=== PATIENT | female | born 1965 | race African-American/Black ===

== ENCOUNTER 2019-10-30 12:24 | Emergency (ER) | payer OTHER, SELFPAY ==
--- NOTE | 2019-10-30 12:40 | ED.URI ---
HPI - URI/Sore Throat General Chief Complaint: Upper Respiratory Infection Stated Complaint: chills/cough/neck sore/pos uti Time Seen by Provider: 10/30/19 12:50 Source: patient and RN notes reviewed Mode of arrival: ambulatory Limitations: no limitations History of Present Illness HPI Narrative: 53-year-old female presents with concern for productive cough, headache, body aches, nasal congestion that started . Reports she has been taking [id number] multisymptom cold medication with no relief. MD elicited complaint: cough Related Data Home Medications Medication Instructions Recorded Confirmed warfarin [Jantoven] 8 mg DAILY 10/30/19 10/30/19 Allergies Allergy/AdvReac Type Severity Reaction Status Date / Time No Known Allergies Allergy Verified 10/30/19 12:39 Review of Systems Review of Systems: Narrative: CONSTITUTIONAL: Reports malaise, chills, sweats, fever. EYES: Denies visual changes, redness, or discharge. ENT: Reports rhinorrhea, congestion, sinus pain, and sore throat. CARDIOVASCULAR: Denies chest pain, palpitations, or edema. RESPIRATORY: Reports productive cough. Denies dyspnea. GASTROINTESTINAL: Denies abdominal pain, nausea, vomiting, diarrhea SKIN: Denies rash or itching. MUSCULOSKELETAL: Reports myalgia. NEUROLOGIC: Reports headache. All systems reviewed & are unremarkable except as noted in HPI and below PMFSH Social History Social History Smoking status: Never smoker Alcohol intake: current Gender identity (if verbalized by the patient): Female Comments At time of signature, agree with nursing past medical, surgical, social and family history. There is no relevant family history pertinent to the presenting complaint Exam Narrative: Exam Narrative: GENERAL: Nontoxic-appearing, well-nourished, and in no acute distress. HEAD: Normocephalic EYES: PERRLA, conjunctivae clear ENT: Nares clear, turbinates edematous and erythematous, purulent discharge. Mucous membranes moist. TM pearly zacarias with dull light reflex bilaterally; no tragal tenderness. Oropharynx erythematous without lesions. Tonsils not enlarged and without exudate, no drooling, no hoarseness, no trismus. NECK: Supple. Right cervical lymphadenopathy CHEST: Clear to auscultation, breath diminished in the right lower lobe. No wheezing, rhonchi, rales, or stridor. No respiratory distress, speaks in full sentences. HEART: Regular rate and rhythm. No murmur heard. Normal peripheral pulses. SKIN: Warm, dry, no rash. NEURO: Alert and oriented x3. PSYCH: Normal mood and affect Course Course Emergency Course: Patient is aware of diagnosis, understands and agrees to treatment plan. Anticipatory guidance given. Patient agrees to follow-up as directed and is aware of reasons to seek care at the emergency department. Portions of this record may have been created with voice recognition software Vital Signs Vital signs: Vital Signs Temperature 99.0 F 10/30/19 12:42 Pulse Rate 100 10/30/19 12:42 Respiratory Rate 18 10/30/19 12:42 Blood Pressure 92/69 L 10/30/19 12:42 Pulse Oximetry 100 10/30/19 12:42 Temperature 99.0 F 10/30/19 12:42 Pulse Rate 100 10/30/19 12:42 Respiratory Rate 18 10/30/19 12:42 Blood Pressure 92/69 L 10/30/19 12:42 Pulse Oximetry 100 10/30/19 12:42 Reviewed. MDM - URI/Sore Throat MDM Narrative Medical decision making narrative: Differential diagnosis considered: Strep pharyngitis, allergic rhinitis, upper respiratory tract infection, sinusitis, rhinosinusitis, nasopharyngitis. viral pharyngitis, otitis media, otitis externa, pneumonia, bronchitis, viral cough syndrome, viral syndrome, and influenza. Exam findings show no acute concerns or changes; patient is non-toxic appearing and is in no distress. Patient is appropriate for outpatient treatment and follow-up. Lab Data Attestation: I reviewed the patient's lab results. Labs: Influenza A Screen Negative
[2019-10-30 12:42] VITALS: BP 92/69; PULSE 100; RESP 18; TEMP 37.2; O2SAT 100
== END 2019-10-30 13:10 | disposition home or self-care (01) ==
PROVIDERS: Emergency Provider Nurse Practitioner; PCP Emergency Medicine
DX: J32.9 Chronic sinusitis, unspecified (principal); J40 Bronchitis, not specified as acute or chronic; Z86.711 Personal history of pulmonary embolism; Z86.718 Personal history of other venous thrombosis and embolism
CPT/HCPCS: 87081; 87804; 87880; 99213; G0463

== ENCOUNTER 2019-11-02 15:14 | Outpatient (CLI) | payer OTHER, SELFPAY ==
--- NOTE | ~2019-11-02 | XR_ITS ---
XR chest 2V DATE: 11/02/2019 15:33 INDICATION: Cough. Acute bronchitis. TECHNIQUE: PA and lateral views of the chest COMPARISON: None FINDINGS: Normal heart size. Mild aortic unfolding. No hilar or mediastinal enlargement. No pulmonary infiltrate or consolidation. The right costophrenic angle is minimally blunted laterally but not posteriorly, likely due to mild pleural thickening rather than pleural effusion. Surgical clips overlie the upper abdomen on lateral view, likely due to cholecystectomy. IMPRESSION: No active cardiopulmonary disease Reviewed, dictated and finalized at location B. ENT SERVICES ADVISOR
== END 2019-11-02 15:15 | disposition home or self-care (01) ==
LOC: ANHIMG 15:18
PROVIDERS: PCP Emergency Medicine; Visit Provider Emergency Medicine
DX: J40 Bronchitis, not specified as acute or chronic (principal)
CPT/HCPCS: 71046

== ENCOUNTER 2019-11-22 14:44 | Outpatient (RCR) | payer OTHER, SELFPAY ==
[2019-09-13 18:13] LABS: INR 2.3; Prothrombin Time 24.6 Seconds (11.1-14.7)
[2019-11-22 15:22] LABS: INR 3.3; Prothrombin Time 32.9 Seconds (11.1-14.7)
== END 2019-12-12 23:59 | disposition home or self-care (01) ==
LOC: ANHLAB 14:44
PROVIDERS: PCP Emergency Medicine; Visit Provider Emergency Medicine
DX: D68.9 Coagulation defect, unspecified (principal)
CPT/HCPCS: 36415; 85610

== ENCOUNTER 2020-02-28 16:39 | Outpatient (RCR) | payer OTHER, SELFPAY ==
[2019-12-14 12:17] LABS: INR 2.3; Prothrombin Time 24.9 Seconds (11.1-14.7)
[2020-02-28 18:15] LABS: INR 3.3
== END 2020-03-13 23:59 | disposition home or self-care (01) ==
LOC: ANHLAB 16:39
PROVIDERS: PCP Emergency Medicine; Visit Provider Emergency Medicine
DX: D68.9 Coagulation defect, unspecified (principal)
CPT/HCPCS: 36415; 85610

== ENCOUNTER 2020-06-13 06:50 | Outpatient (CLI) | payer BC, SELFPAY ==
--- NOTE | ~2020-06-13 | CT_ITS ---
EXAMINATION: CT orbit BI w con DATE: 06/13/2020 07:43 INDICATION: Left orbital pain. TECHNIQUE: Computed tomography (CT) of the orbits was performed with 75 mL Omnipaque 350 intravenous contrast. Automated exposure control and iterative reconstruction technique were employed. The dose-l ength product was 163.81 mGy-cm. COMPARISON: None FINDINGS: Left medial rectus muscle is enlarged with surrounding fat stranding. Both the muscle and t endinous insertion are involved. There are mucous retention cyst in right maxillary sinus. The mastoi d air cells are normal. IMPRESSION: 1. 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 Reviewed, dictated and finalized at location A. IMPRESSION: 1. Enlargement of left medial rectus muscle with surrounding fat stranding, lik jada idiopathic orbital inflammation.
[2020-06-13 09:37] LABS: Free T4 Free Thyroxine 1.08 ng/mL (0.78-2.19)
== END 2020-06-13 06:51 | disposition home or self-care (01) ==
PROVIDERS: PCP Emergency Medicine; Visit Provider Specialist
DX: H57.12 Ocular pain, left eye (principal); H05.89 Other disorders of orbit; E03.8 Other specified hypothyroidism
CPT/HCPCS: 36415; 70481; 84439; 84443; 85610; Q9967

== ENCOUNTER 2020-07-09 11:42 | Outpatient (RCR) | payer BC, SELFPAY ==
[2020-06-13 08:56] LABS: INR 3.7; Prothrombin Time 35.8 Seconds (11.1-14.7)
[2020-07-09 12:32] LABS: INR 3.8
== END 2020-08-11 23:59 | disposition home or self-care (01) ==
LOC: ANHLAB 11:42
PROVIDERS: PCP Emergency Medicine; Visit Provider Emergency Medicine
DX: D68.9 Coagulation defect, unspecified (principal)
CPT/HCPCS: 36415; 85610

== ENCOUNTER 2020-12-18 14:43 | Outpatient (RCR) | payer BC, SELFPAY ==
[2020-09-19 17:19] LABS: INR 3.4; Prothrombin Time 34.4 Seconds (11.1-14.7)
[2020-11-10 18:14] LABS: Prothrombin Time 22.9 Seconds (11.1-14.7)
[2020-12-18 15:12] LABS: INR 1.9; Prothrombin Time 22.5 Seconds (11.1-14.7)
== END 2020-12-18 23:59 | disposition home or self-care (01) ==
LOC: ANHLAB 14:43
PROVIDERS: PCP Emergency Medicine; Visit Provider Emergency Medicine
DX: D68.9 Coagulation defect, unspecified (principal)
CPT/HCPCS: 36415; 85610

== ENCOUNTER 2021-04-14 16:49 | Outpatient (RCR) | payer BC, SELFPAY ==
[2021-01-29 18:11] LABS: INR 2.8; Prothrombin Time 29.8 Seconds (11.1-14.7)
== END 2021-04-29 23:59 | disposition home or self-care (01) ==
LOC: ANHLAB 16:49
PROVIDERS: PCP Emergency Medicine; Visit Provider Emergency Medicine
DX: D68.9 Coagulation defect, unspecified (principal)
CPT/HCPCS: 36415; 85610

== ENCOUNTER 2021-10-08 10:46 | Outpatient (RCR) | payer BC, SELFPAY ==
[2021-10-08 17:24] LABS: Basophils Percent Auto 0.5 % (0.2-1.2); Eosinophils Absolute Auto 0.1 K/mm3 (0-0.3); Eosinophils Percent Auto 1.1 % (0-4.4); Hematocrit 37.8 % (37.0-47.0); Hemoglobin 12.4 g/dL (12.0-15.0); Immature Granulocyte Absolute 0.01 K/mm3 (0.00-0.031); Immature Granulocyte Percent A 0.1 % (0-0.5); Lymphocytes Absolute Auto 2.05 K/mm3 (0.9-3.2); Mean Corpuscular HGB Conc 32.8 g/dl (32-36); Mean Corpuscular Hemoglobin 26.5 pg (26-34); Mean Corpuscular Volume 80.8 fl (80-100); Mean Platelet Volume 10.6 fl (7.4-10.4); Monocytes Absolute Auto 0.5 K/mm3 (0.1-0.6); Monocytes Percent Auto 6.2 % (2.6-8.5); Neutrophils Absolute Auto 5.5 K/mm3 (1.3-6.7); Neutrophils Percent Auto 67.1 % (45.5-73.1); Platelet Count Result 278 k/mm3 (150-375); Red Blood Count 4.68 M/mm3 (4.2-5.4); Red Cell Distribution Width 13.4 % (11.5-14.5); White Blood Count 8.2 K/mm3 (4.5-10.0)
[2021-10-08 17:32] LABS: INR 2.3; Prothrombin Time 24.6 Seconds (11.1-14.7)
[2021-10-08 17:34] LABS: Add Urine Microscopic? YES; Appearance Urine Clear (Clear); Bacteria Urine Trace /hpf; Bilirubin Urine Negative (Negative); Blood Urine 2+ (Negative); Color Urine Yellow (Yellow); Glucose Urine UA Negative (Negative); Ketones Urine Trace mg/dL (Negative); Leukocyte Esterase Ur Negative LEU/UL (Negative); Mucus Urine Moderate /lpf; Nitrate Urine Negative (Negative); Protein Urine Negative (Negative); Specific Grav Ur 1.027 (1.001-1.035); Squamous Epithelial Cell Urine Many /hpf (Few); Urobilinogen Urine Negative mg/dL (<2.0); WBC Urine 0-3 /hpf
[2021-10-08 17:46] LABS: Alanine Aminotransferase 14 U/L (4-35); Albumin Level 4.3 g/dL (3.5-5.1); Alkaline Phosphatase 68 U/L (38-126); Anion Gap 4 mmol/L (8-16); Aspartate Amino Transferase 23 U/L (14-36); Bilirubin,Total 0.4 mg/dL (0.2-1.3); Blood Urea Nitrogen 10 mg/dL (7-17); Calcium 8.8 mg/dL (8.4-10.2); Carbon Dioxide 30 mmol/L (22-30); Chloride 107 mmol/L (98-107); Cholesterol 206 mg/dL (0-200); Estimated Glomerular Filt Rate > 60; Glucose 113 mg/dL (65-110); HDL Direct 60 mg/dL; Phosphorus 3.2 mg/dL (2.5-4.5); Sodium 141 mmol/L (137-145); Triglycerides 119 mg/dL (<150)
[2021-10-08 17:57] LABS: LDL Cholesterol Direct 97 mg/dL
[2021-10-08 18:51] LABS: Folic Acid 7.1 ng/mL (2.76->20); Vitamin D 25 Hydroxy < 12.8 ng/mL
== END 2022-01-06 23:59 | disposition home or self-care (01) ==
LOC: ANHLAB 10:46
PROVIDERS: PCP Emergency Medicine; Visit Provider Emergency Medicine
DX: E55.9 Vitamin D deficiency, unspecified (principal); E61.1 Iron deficiency; J20.9 Acute bronchitis, unspecified; D68.9 Coagulation defect, unspecified; D75.89 Other specified diseases of blood and blood-forming organs; R73.9 Hyperglycemia, unspecified; R53.83 Other fatigue
CPT/HCPCS: 36415; 80061; 80069; 80076; 81001; 82306; 82607; 82746; 84443; 85025; 85610

== ENCOUNTER 2022-03-03 09:56 | Outpatient (RCR) | payer BC, SELFPAY ==
[2022-03-03 10:44] LABS: INR 1.9; Prothrombin Time 21.3 Seconds (11.1-14.7)
== END 2022-06-01 23:59 | disposition home or self-care (01) ==
LOC: ANHLAB 09:56
PROVIDERS: PCP Emergency Medicine; Visit Provider Emergency Medicine
DX: D68.9 Coagulation defect, unspecified (principal)
CPT/HCPCS: 36415; 85610

== ENCOUNTER 2022-05-19 13:21 | Outpatient (CLI) | payer OTHER, SELFPAY ==
[2022-05-23 06:12] LABS: FSH 75.6 mIU/mL (***)
[2022-05-24 23:16] LABS: Estradiol, Ultrasensitive 14 pg/mL
== END 2022-05-19 13:22 | disposition home or self-care (01) ==
LOC: ANHLAB 13:23
PROVIDERS: PCP Obstetrics & Gynecology; Visit Provider Obstetrics & Gynecology
DX: N93.9 Abnormal uterine and vaginal bleeding, unspecified (principal)
CPT/HCPCS: 36415; 82670; 83001